=== PATIENT | male | born 1960 | race Caucasian/White ===

== ENCOUNTER 2021-08-12 12:08 | Inpatient (IN) ==
[2021-08-12] MEDS ORDERED: NON-FORMULARY MEDICATION 1 EACH EACH (Cefazolin 2,000 MG/120 ML Bag) IVPB SCH (15:45)
[2021-08-12] MEDS ORDERED: *HR* Dextrose 50 % in Water (Syg) 50 ML SYRINGE IVP PRN (15:49)
[2021-08-12] MEDS ORDERED: Dextrose 4 GM Chewable Tablets PO PRN ×2 (15:49)
[2021-08-12] MEDS ORDERED: D5% in Water 1,000 ML IVC PRN (15:49)
[2021-08-12] MEDS: Insulin LISPRO 300 UNITS/3 ML VIAL SUBQ SCH ×2 (18:18→20:48)
[2021-08-12] MEDS: metroNIDAZOLE 500 MG TABLET PO SCH (20:31)
[2021-08-13] MEDS: ceFAZolin 2,000 MG in 0.9 % Sodium Chloride 100 ML IVPB SCH ×3 (00:29→17:11)
[2021-08-13] MEDS: *HR* Enoxaparin 40 MG/0.4 ML SYRINGE SQ SCH (05:48)
[2021-08-13 06:56] LABS: Basophils % 0.4 %; Eosinophils # 0.2 K/mcL (0.0-0.6); Eosinophils % 2.5 %; Hematocrit 44.6 % (37.5-50.1); Hemoglobin 14.8 g/dL (12.9-16.9); Immature Granulocytes % 0.7 % (0-4); Lymphocytes # 2.5 K/mcL (0.6-4.6); Lymphocytes % 29.5 %; Mean Corpuscular HGB Conc 33.2 g/dL (31.6-35.5); Mean Corpuscular Hemoglobin 29.4 pg (28.0-33.3); Mean Corpuscular Volume 88.7 fL (83.0-100.0); Mean Platelet Volume 9.2 fL (9.4-12.4); Monocytes # 0.9 K/mcL (0.0-1.3); Monocytes % 10.5 %; Neutrophils # 4.8 K/mcL (1.6-8.9); Platelet Count 194 K/mcL (140-400); Red Blood Count 5.03 M/mcL (4.19-5.50); Red Cell Distribution Width 13.6 % (11.5-14.5); Segmented Neutrophils % 56.4 %; White Blood Count 8.4 K/mcL (4.3-11.1)
[2021-08-13 07:15] LABS: BUN/Creatinine Ratio 35 (6-26); Blood Urea Nitrogen 23 mg/dL (6-20); Carbon Dioxide 28 mEq/L (23-29); Chloride 104 mEq/L (98-107); Glucose 200 mg/dL (70-105); Osmolality,Calculated 295 (280-300); Potassium 4.3 mEq/L (3.5-5.1); Sodium 138 mEq/L (136-145); eGFR For African Americans > 60 (> 60); eGFR For Non-African Americans > 60 (> 60)
[2021-08-13] MEDS: Insulin LISPRO 300 UNITS/3 ML VIAL SUBQ SCH ×4 (08:06→20:17)
[2021-08-13] MEDS: metroNIDAZOLE 500 MG TABLET PO SCH ×3 (08:07→20:17)
[2021-08-13] MEDS: GlipiZIDE 5 MG TABLET PO SCH (08:43)
[2021-08-14] MEDS: ceFAZolin 2,000 MG in 0.9 % Sodium Chloride 100 ML IVPB SCH ×3 (00:24→17:04)
[2021-08-14] MEDS: *HR* Enoxaparin 40 MG/0.4 ML SYRINGE SQ SCH (05:59)
[2021-08-14] MEDS: Insulin LISPRO 300 UNITS/3 ML VIAL SUBQ SCH ×4 (08:28→19:55)
[2021-08-14] MEDS: GlipiZIDE 5 MG TABLET PO SCH (08:28)
[2021-08-14] MEDS: metroNIDAZOLE 500 MG TABLET PO SCH ×3 (08:28→19:55)
[2021-08-15] MEDS: ceFAZolin 2,000 MG in 0.9 % Sodium Chloride 100 ML IVPB SCH ×3 (01:00→16:57)
[2021-08-15] MEDS: *HR* Enoxaparin 40 MG/0.4 ML SYRINGE SQ SCH (06:13)
[2021-08-15] MEDS: GlipiZIDE 5 MG TABLET PO SCH (08:15)
[2021-08-15] MEDS: Insulin LISPRO 300 UNITS/3 ML VIAL SUBQ SCH ×4 (08:16→21:59)
[2021-08-15] MEDS: metroNIDAZOLE 500 MG TABLET PO SCH ×3 (08:16→21:59)
[2021-08-15] MEDS: Insulin DETEMIR 100 UNIT/ML X5UNITS SUBQ SCH (21:59)
[2021-08-16] MEDS: ceFAZolin 2,000 MG in 0.9 % Sodium Chloride 100 ML IVPB SCH ×3 (01:12→15:59)
[2021-08-16] MEDS: *HR* Enoxaparin 40 MG/0.4 ML SYRINGE SQ SCH (06:05)
[2021-08-16] MEDS: GlipiZIDE 5 MG TABLET PO SCH (08:46)
[2021-08-16] MEDS: Aspirin Enteric Coated 81 MG Tablet PO SCH (08:46)
[2021-08-16] MEDS: metroNIDAZOLE 500 MG TABLET PO SCH ×3 (08:46→20:58)
[2021-08-16] MEDS: Insulin LISPRO 300 UNITS/3 ML VIAL SUBQ SCH ×4 (08:48→20:58)
[2021-08-16] MEDS: Insulin DETEMIR 100 UNIT/ML X5UNITS SUBQ SCH (20:58)
[2021-08-17] MEDS: ceFAZolin 2,000 MG in 0.9 % Sodium Chloride 100 ML IVPB SCH ×4 (00:18→23:49)
[2021-08-17] MEDS: *HR* Enoxaparin 40 MG/0.4 ML SYRINGE SQ SCH (05:16)
[2021-08-17] MEDS: GlipiZIDE 5 MG TABLET PO SCH (08:42)
[2021-08-17] MEDS: metroNIDAZOLE 500 MG TABLET PO SCH ×3 (08:42→21:19)
[2021-08-17] MEDS: Insulin LISPRO 300 UNITS/3 ML VIAL SUBQ SCH ×4 (08:42→21:19)
[2021-08-17] MEDS: Aspirin Enteric Coated 81 MG Tablet PO SCH (08:42)
[2021-08-17] MEDS: Insulin DETEMIR 100 UNIT/ML X5UNITS SUBQ SCH (21:19)
[2021-08-18] MEDS: *HR* Enoxaparin 40 MG/0.4 ML SYRINGE SQ SCH (06:27)
[2021-08-18] MEDS: metroNIDAZOLE 500 MG TABLET PO SCH ×3 (08:42→20:09)
[2021-08-18] MEDS: Insulin LISPRO 300 UNITS/3 ML VIAL SUBQ SCH ×4 (08:42→20:07)
[2021-08-18] MEDS: GlipiZIDE 5 MG TABLET PO SCH (08:42)
[2021-08-18] MEDS: Aspirin Enteric Coated 81 MG Tablet PO SCH (08:42)
[2021-08-18] MEDS: ceFAZolin 2,000 MG in 0.9 % Sodium Chloride 100 ML IVPB SCH ×3 (08:46→23:36)
[2021-08-18] MEDS: Insulin DETEMIR 100 UNIT/ML X5UNITS SUBQ SCH (20:06)
[2021-08-18] MEDS: Melatonin 3 MG TABLET PO PRN (20:09)
[2021-08-19] MEDS: *HR* Enoxaparin 40 MG/0.4 ML SYRINGE SQ SCH (05:52)
[2021-08-19 06:00] LABS: Basophils % 0.4 %; Eosinophils # 0.3 K/mcL (0.0-0.6); Eosinophils % 3.5 %; Hematocrit 41.6 % (37.5-50.1); Hemoglobin 13.7 g/dL (12.9-16.9); Immature Granulocytes % 0.3 % (0-4); Lymphocytes # 2.3 K/mcL (0.6-4.6); Mean Corpuscular HGB Conc 32.9 g/dL (31.6-35.5); Mean Corpuscular Volume 87.9 fL (83.0-100.0); Mean Platelet Volume 10.1 fL (9.4-12.4); Monocytes # 0.7 K/mcL (0.0-1.3); Monocytes % 10.1 %; Neutrophils # 3.8 K/mcL (1.6-8.9); Platelet Count 127 K/mcL (140-400); Red Blood Count 4.73 M/mcL (4.19-5.50); Red Cell Distribution Width 13.6 % (11.5-14.5); Segmented Neutrophils % 53.7 %; White Blood Count 7.2 K/mcL (4.3-11.1)
[2021-08-19] MEDS: ceFAZolin 2,000 MG in 0.9 % Sodium Chloride 100 ML IVPB SCH ×3 (08:41→23:49)
[2021-08-19] MEDS: metroNIDAZOLE 500 MG TABLET PO SCH ×3 (08:42→21:04)
[2021-08-19] MEDS: GlipiZIDE 5 MG TABLET PO SCH (08:42)
[2021-08-19] MEDS: Insulin DETEMIR 100 UNIT/ML X5UNITS SUBQ SCH ×2 (08:42→21:04)
[2021-08-19] MEDS: Aspirin Enteric Coated 81 MG Tablet PO SCH (08:42)
[2021-08-19] MEDS: Insulin LISPRO 300 UNITS/3 ML VIAL SUBQ SCH ×4 (08:48→21:05)
[2021-08-19 08:59] LABS: BUN/Creatinine Ratio 27 (6-26); Blood Urea Nitrogen 15 mg/dL (6-20); Calcium 8.8 mg/dL (8.6-10.3); Carbon Dioxide 28 mEq/L (23-29); Chloride 105 mEq/L (98-107); Glucose 186 mg/dL (70-105); Osmolality,Calculated 292 (280-300); Potassium 4.3 mEq/L (3.5-5.1); Sodium 138 mEq/L (136-145); eGFR For African Americans > 60 (> 60); eGFR For Non-African Americans > 60 (> 60)
[2021-08-19 10:20] LABS: C-Reactive Protein < 5 mg/L (Less than 10)
[2021-08-20] MEDS: *HR* Enoxaparin 40 MG/0.4 ML SYRINGE SQ SCH (06:30)
[2021-08-20] MEDS: metroNIDAZOLE 500 MG TABLET PO SCH ×3 (07:59→20:53)
[2021-08-20] MEDS: Aspirin Enteric Coated 81 MG Tablet PO SCH (07:59)
[2021-08-20] MEDS: GlipiZIDE 5 MG TABLET PO SCH (07:59)
[2021-08-20] MEDS: Insulin LISPRO 300 UNITS/3 ML VIAL SUBQ SCH ×4 (08:00→20:53)
[2021-08-20] MEDS: Insulin DETEMIR 100 UNIT/ML X5UNITS SUBQ SCH ×2 (08:34→20:53)
[2021-08-20] MEDS: ceFAZolin 2,000 MG in 0.9 % Sodium Chloride 100 ML IVPB SCH ×2 (08:35→17:06)
[2021-08-20] MEDS: Melatonin 3 MG TABLET PO PRN (20:53)
[2021-08-21] MEDS: ceFAZolin 2,000 MG in 0.9 % Sodium Chloride 100 ML IVPB SCH ×3 (01:30→16:26)
[2021-08-21] MEDS: *HR* Enoxaparin 40 MG/0.4 ML SYRINGE SQ SCH (04:04)
[2021-08-21] MEDS: Insulin LISPRO 300 UNITS/3 ML VIAL SUBQ SCH ×4 (08:17→22:45)
[2021-08-21] MEDS: Aspirin Enteric Coated 81 MG Tablet PO SCH (13:17)
[2021-08-21] MEDS: GlipiZIDE 5 MG TABLET PO SCH (13:17)
[2021-08-21] MEDS: metroNIDAZOLE 500 MG TABLET PO SCH ×3 (13:17→22:40)
[2021-08-21] MEDS: Insulin DETEMIR 100 UNIT/ML X5UNITS SUBQ SCH ×2 (13:18→22:39)
[2021-08-21] MEDS: Melatonin 3 MG TABLET PO PRN (22:40)
[2021-08-22] MEDS: ceFAZolin 2,000 MG in 0.9 % Sodium Chloride 100 ML IVPB SCH ×3 (01:17→15:40)
[2021-08-22] MEDS: *HR* Enoxaparin 40 MG/0.4 ML SYRINGE SQ SCH (07:03)
[2021-08-22] MEDS: Insulin LISPRO 300 UNITS/3 ML VIAL SUBQ SCH ×4 (08:26→20:47)
[2021-08-22] MEDS: Aspirin Enteric Coated 81 MG Tablet PO SCH (08:27)
[2021-08-22] MEDS: metroNIDAZOLE 500 MG TABLET PO SCH ×3 (08:27→20:47)
[2021-08-22] MEDS: GlipiZIDE 5 MG TABLET PO SCH (08:27)
[2021-08-22] MEDS: Insulin DETEMIR 100 UNIT/ML X5UNITS SUBQ SCH ×2 (08:59→20:47)
[2021-08-22] MEDS: Melatonin 3 MG TABLET PO PRN (20:46)
[2021-08-23] MEDS: ceFAZolin 2,000 MG in 0.9 % Sodium Chloride 100 ML IVPB SCH ×4 (00:18→23:59)
[2021-08-23] MEDS: *HR* Enoxaparin 40 MG/0.4 ML SYRINGE SQ SCH (05:33)
[2021-08-23 07:53] LABS: Basophils % 0.4 %; Eosinophils # 0.2 K/mcL (0.0-0.6); Hemoglobin 13.7 g/dL (12.9-16.9); Immature Granulocytes % 0.3 % (0-4); Lymphocytes # 2.5 K/mcL (0.6-4.6); Mean Corpuscular HGB Conc 33.4 g/dL (31.6-35.5); Mean Corpuscular Hemoglobin 29.5 pg (28.0-33.3); Mean Corpuscular Volume 88.4 fL (83.0-100.0); Monocytes # 0.7 K/mcL (0.0-1.3); Monocytes % 9.9 %; Neutrophils # 4.1 K/mcL (1.6-8.9); Platelet Count 126 K/mcL (140-400); Red Blood Count 4.64 M/mcL (4.19-5.50); Red Cell Distribution Width 13.8 % (11.5-14.5); Segmented Neutrophils % 54.4 %; White Blood Count 7.5 K/mcL (4.3-11.1)
[2021-08-23] MEDS: Insulin LISPRO 300 UNITS/3 ML VIAL SUBQ SCH ×4 (08:09→20:43)
[2021-08-23] MEDS: GlipiZIDE 5 MG TABLET PO SCH (08:10)
[2021-08-23] MEDS: metroNIDAZOLE 500 MG TABLET PO SCH ×3 (08:11→20:41)
[2021-08-23] MEDS: Aspirin Enteric Coated 81 MG Tablet PO SCH (08:11)
[2021-08-23 08:14] LABS: BUN/Creatinine Ratio 29 (6-26); Blood Urea Nitrogen 17 mg/dL (6-20); Calcium 8.8 mg/dL (8.6-10.3); Carbon Dioxide 29 mEq/L (23-29); Chloride 102 mEq/L (98-107); Glucose 203 mg/dL (70-105); Osmolality,Calculated 293 (280-300); Potassium 3.9 mEq/L (3.5-5.1); Sodium 138 mEq/L (136-145); eGFR For African Americans > 60 (> 60); eGFR For Non-African Americans > 60 (> 60)
[2021-08-23] MEDS: Insulin DETEMIR 100 UNIT/ML X5UNITS SUBQ SCH ×2 (08:44→20:42)
[2021-08-23] MEDS: Melatonin 3 MG TABLET PO PRN (20:42)
[2021-08-24] MEDS: *HR* Enoxaparin 40 MG/0.4 ML SYRINGE SQ SCH (05:17)
[2021-08-24] MEDS: Insulin LISPRO 300 UNITS/3 ML VIAL SUBQ SCH ×4 (07:40→20:05)
[2021-08-24] MEDS: GlipiZIDE 5 MG TABLET PO SCH (09:48)
[2021-08-24] MEDS: Insulin DETEMIR 100 UNIT/ML X5UNITS SUBQ SCH ×2 (09:48→20:04)
[2021-08-24] MEDS: metroNIDAZOLE 500 MG TABLET PO SCH ×3 (09:48→20:04)
[2021-08-24] MEDS: Aspirin Enteric Coated 81 MG Tablet PO SCH (09:48)
[2021-08-24] MEDS: ceFAZolin 2,000 MG in 0.9 % Sodium Chloride 100 ML IVPB SCH ×3 (10:07→23:46)
[2021-08-24] MEDS: Melatonin 3 MG TABLET PO PRN (20:04)
[2021-08-25] MEDS: *HR* Enoxaparin 40 MG/0.4 ML SYRINGE SQ SCH (06:53)
[2021-08-25] MEDS: metroNIDAZOLE 500 MG TABLET PO SCH ×3 (07:26→21:04)
[2021-08-25] MEDS: GlipiZIDE 5 MG TABLET PO SCH (07:26)
[2021-08-25] MEDS: Aspirin Enteric Coated 81 MG Tablet PO SCH (07:26)
[2021-08-25] MEDS: ceFAZolin 2,000 MG in 0.9 % Sodium Chloride 100 ML IVPB SCH ×2 (07:27→17:31)
[2021-08-25] MEDS: Insulin LISPRO 300 UNITS/3 ML VIAL SUBQ SCH ×4 (07:27→21:04)
[2021-08-25] MEDS: Insulin DETEMIR 100 UNIT/ML X5UNITS SUBQ SCH ×2 (08:12→21:04)
[2021-08-25] MEDS: Melatonin 3 MG TABLET PO PRN (21:04)
[2021-08-26] MEDS: ceFAZolin 2,000 MG in 0.9 % Sodium Chloride 100 ML IVPB SCH ×3 (00:03→16:51)
[2021-08-26] MEDS: *HR* Enoxaparin 40 MG/0.4 ML SYRINGE SQ SCH (06:34)
[2021-08-26] MEDS: Insulin LISPRO 300 UNITS/3 ML VIAL SUBQ SCH ×4 (07:30→20:45)
[2021-08-26] MEDS: metroNIDAZOLE 500 MG TABLET PO SCH ×2 (09:58→17:22)
[2021-08-26] MEDS: GlipiZIDE 5 MG TABLET PO SCH (09:58)
[2021-08-26] MEDS: Aspirin Enteric Coated 81 MG Tablet PO SCH (09:58)
[2021-08-26] MEDS: Insulin DETEMIR 100 UNIT/ML X5UNITS SUBQ SCH ×2 (10:02→20:56)
[2021-08-26] MEDS: Melatonin 3 MG TABLET PO PRN (20:56)
[2021-08-27] MEDS: ceFAZolin 2,000 MG in 0.9 % Sodium Chloride 100 ML IVPB SCH ×3 (00:29→16:22)
[2021-08-27] MEDS: *HR* Enoxaparin 40 MG/0.4 ML SYRINGE SQ SCH (05:23)
[2021-08-27] MEDS: GlipiZIDE 5 MG TABLET PO SCH (07:44)
[2021-08-27] MEDS: Insulin LISPRO 300 UNITS/3 ML VIAL SUBQ SCH ×4 (07:44→20:46)
[2021-08-27] MEDS: Aspirin Enteric Coated 81 MG Tablet PO SCH (07:44)
[2021-08-27] MEDS: Insulin DETEMIR 100 UNIT/ML X5UNITS SUBQ SCH ×2 (08:09→20:46)
[2021-08-28] MEDS: ceFAZolin 2,000 MG in 0.9 % Sodium Chloride 100 ML IVPB SCH ×3 (00:12→16:54)
[2021-08-28] MEDS: *HR* Enoxaparin 40 MG/0.4 ML SYRINGE SQ SCH (06:41)
[2021-08-28] MEDS: Aspirin Enteric Coated 81 MG Tablet PO SCH (07:55)
[2021-08-28] MEDS: GlipiZIDE 5 MG TABLET PO SCH (07:56)
[2021-08-28] MEDS: Insulin LISPRO 300 UNITS/3 ML VIAL SUBQ SCH ×4 (07:56→21:44)
[2021-08-28] MEDS: Insulin DETEMIR 100 UNIT/ML X5UNITS SUBQ SCH ×2 (08:57→21:43)
[2021-08-29] MEDS: ceFAZolin 2,000 MG in 0.9 % Sodium Chloride 100 ML IVPB SCH ×3 (00:21→17:25)
[2021-08-29] MEDS: *HR* Enoxaparin 40 MG/0.4 ML SYRINGE SQ SCH (06:24)
[2021-08-29] MEDS: GlipiZIDE 5 MG TABLET PO SCH (08:41)
[2021-08-29] MEDS: Insulin DETEMIR 100 UNIT/ML X5UNITS SUBQ SCH ×2 (08:41→22:03)
[2021-08-29] MEDS: Aspirin Enteric Coated 81 MG Tablet PO SCH (08:41)
[2021-08-29] MEDS: Insulin LISPRO 300 UNITS/3 ML VIAL SUBQ SCH ×4 (08:42→22:03)
[2021-08-30] MEDS: ceFAZolin 2,000 MG in 0.9 % Sodium Chloride 100 ML IVPB SCH ×3 (00:45→16:28)
[2021-08-30] MEDS: *HR* Enoxaparin 40 MG/0.4 ML SYRINGE SQ SCH (06:10)
[2021-08-30] MEDS: Insulin LISPRO 300 UNITS/3 ML VIAL SUBQ SCH ×4 (09:32→20:26)
[2021-08-30] MEDS: Insulin DETEMIR 100 UNIT/ML X5UNITS SUBQ SCH ×2 (09:33→20:26)
[2021-08-30] MEDS: GlipiZIDE 5 MG TABLET PO SCH (09:45)
[2021-08-30] MEDS: Aspirin Enteric Coated 81 MG Tablet PO SCH (09:46)
[2021-08-31] MEDS: ceFAZolin 2,000 MG in 0.9 % Sodium Chloride 100 ML IVPB SCH ×4 (00:49→22:38)
[2021-08-31] MEDS: *HR* Enoxaparin 40 MG/0.4 ML SYRINGE SQ SCH (05:17)
[2021-08-31] MEDS: Insulin DETEMIR 100 UNIT/ML X5UNITS SUBQ SCH ×2 (08:52→22:38)
[2021-08-31] MEDS: Aspirin Enteric Coated 81 MG Tablet PO SCH (08:52)
[2021-08-31] MEDS: GlipiZIDE 5 MG TABLET PO SCH (08:52)
[2021-08-31] MEDS: Insulin LISPRO 300 UNITS/3 ML VIAL SUBQ SCH ×4 (08:52→19:47)
[2021-08-31] MEDS: polyethylene glycoL 3350 17 GM POWD.PACK PO PRN (12:45)
[2021-08-31] MEDS: Lactulose Oral Soln 20 GM/30 ML UDC PO PRN (14:25)
[2021-09-01] MEDS: ceFAZolin 2,000 MG in 0.9 % Sodium Chloride 100 ML IVPB SCH ×2 (04:01→12:46)
[2021-09-01] MEDS: *HR* Enoxaparin 40 MG/0.4 ML SYRINGE SQ SCH (05:58)
[2021-09-01] MEDS: Insulin LISPRO 300 UNITS/3 ML VIAL SUBQ SCH ×4 (08:34→19:25)
[2021-09-01] MEDS: Lactulose Oral Soln 20 GM/30 ML UDC PO PRN (08:48)
[2021-09-01] MEDS: Aspirin Enteric Coated 81 MG Tablet PO SCH (08:48)
[2021-09-01] MEDS: GlipiZIDE 5 MG TABLET PO SCH (08:48)
[2021-09-01] MEDS: Insulin DETEMIR 100 UNIT/ML X5UNITS SUBQ SCH ×2 (08:56→20:50)
[2021-09-01] MEDS: Melatonin 3 MG TABLET PO PRN (20:50)
[2021-09-02] MEDS: ceFAZolin 2,000 MG in 0.9 % Sodium Chloride 100 ML IVPB SCH ×4 (00:46→23:54)
[2021-09-02] MEDS: *HR* Enoxaparin 40 MG/0.4 ML SYRINGE SQ SCH (06:36)
[2021-09-02 07:09] LABS: Basophils % 0.3 %; Eosinophils # 0.4 K/mcL (0.0-0.6); Eosinophils % 5.9 %; Hematocrit 40.4 % (37.5-50.1); Hemoglobin 13.7 g/dL (12.9-16.9); Immature Granulocytes % 0.2 % (0-4); Lymphocytes # 2.4 K/mcL (0.6-4.6); Lymphocytes % 38.3 %; Mean Corpuscular HGB Conc 33.9 g/dL (31.6-35.5); Mean Corpuscular Hemoglobin 29.8 pg (28.0-33.3); Mean Corpuscular Volume 87.8 fL (83.0-100.0); Mean Platelet Volume 9.6 fL (9.4-12.4); Monocytes # 0.8 K/mcL (0.0-1.3); Monocytes % 12.9 %; Neutrophils # 2.6 K/mcL (1.6-8.9); Platelet Count 145 K/mcL (140-400); Red Cell Distribution Width 13.5 % (11.5-14.5); Segmented Neutrophils % 42.4 %; White Blood Count 6.1 K/mcL (4.3-11.1)
[2021-09-02] MEDS: Insulin LISPRO 300 UNITS/3 ML VIAL SUBQ SCH ×4 (07:42→20:37)
[2021-09-02 08:10] LABS: BUN/Creatinine Ratio 25 (6-26); Blood Urea Nitrogen 13 mg/dL (6-20); Calcium 8.7 mg/dL (8.6-10.3); Carbon Dioxide 30 mEq/L (23-29); Chloride 105 mEq/L (98-107); Glucose 134 mg/dL (70-105); Osmolality,Calculated 294 (280-300); Potassium 3.9 mEq/L (3.5-5.1); Sodium 141 mEq/L (136-145); eGFR For African Americans > 60 (> 60); eGFR For Non-African Americans > 60 (> 60)
[2021-09-02] MEDS: Aspirin Enteric Coated 81 MG Tablet PO SCH (08:46)
[2021-09-02] MEDS: GlipiZIDE 5 MG TABLET PO SCH (08:46)
[2021-09-02] MEDS: Insulin DETEMIR 100 UNIT/ML X5UNITS SUBQ SCH ×2 (08:47→20:36)
[2021-09-02 09:10] LABS: C-Reactive Protein < 5 mg/L (Less than 10)
[2021-09-03] MEDS: *HR* Enoxaparin 40 MG/0.4 ML SYRINGE SQ SCH (05:57)
[2021-09-03] MEDS: Insulin LISPRO 300 UNITS/3 ML VIAL SUBQ SCH ×4 (07:48→19:58)
[2021-09-03] MEDS: ceFAZolin 2,000 MG in 0.9 % Sodium Chloride 100 ML IVPB SCH ×3 (08:23→23:31)
[2021-09-03] MEDS: GlipiZIDE 5 MG TABLET PO SCH (08:24)
[2021-09-03] MEDS: Aspirin Enteric Coated 81 MG Tablet PO SCH (08:24)
[2021-09-03] MEDS: Insulin DETEMIR 100 UNIT/ML X5UNITS SUBQ SCH ×2 (12:04→20:32)
[2021-09-03] MEDS: Melatonin 3 MG TABLET PO PRN (20:32)
[2021-09-03] MEDS: Sennosides 8.6 MG TABLET PO PRN (20:32)
[2021-09-04] MEDS: *HR* Enoxaparin 40 MG/0.4 ML SYRINGE SQ SCH (05:51)
[2021-09-04] MEDS: Insulin LISPRO 300 UNITS/3 ML VIAL SUBQ SCH ×4 (07:17→19:41)
[2021-09-04] MEDS: ceFAZolin 2,000 MG in 0.9 % Sodium Chloride 100 ML IVPB SCH ×3 (07:25→23:34)
[2021-09-04] MEDS: Aspirin Enteric Coated 81 MG Tablet PO SCH (07:25)
[2021-09-04] MEDS: GlipiZIDE 5 MG TABLET PO SCH (07:25)
[2021-09-04] MEDS: Insulin DETEMIR 100 UNIT/ML X5UNITS SUBQ SCH ×2 (09:12→19:41)
[2021-09-05] MEDS: *HR* Enoxaparin 40 MG/0.4 ML SYRINGE SQ SCH (05:35)
[2021-09-05] MEDS: ceFAZolin 2,000 MG in 0.9 % Sodium Chloride 100 ML IVPB SCH ×3 (08:09→23:42)
[2021-09-05] MEDS: Aspirin Enteric Coated 81 MG Tablet PO SCH (08:09)
[2021-09-05] MEDS: GlipiZIDE 5 MG TABLET PO SCH (08:09)
[2021-09-05] MEDS: Insulin DETEMIR 100 UNIT/ML X5UNITS SUBQ SCH ×2 (08:35→19:51)
[2021-09-05] MEDS: Insulin LISPRO 300 UNITS/3 ML VIAL SUBQ SCH ×4 (13:39→19:52)
[2021-09-05] MEDS: Melatonin 3 MG TABLET PO PRN (19:51)
[2021-09-06] MEDS: *HR* Enoxaparin 40 MG/0.4 ML SYRINGE SQ SCH (05:15)
[2021-09-06] MEDS: Insulin LISPRO 300 UNITS/3 ML VIAL SUBQ SCH ×4 (07:20→20:48)
[2021-09-06] MEDS: ceFAZolin 2,000 MG in 0.9 % Sodium Chloride 100 ML IVPB SCH ×3 (09:17→23:59)
[2021-09-06] MEDS: GlipiZIDE 5 MG TABLET PO SCH (09:17)
[2021-09-06] MEDS: Aspirin Enteric Coated 81 MG Tablet PO SCH (09:17)
[2021-09-06] MEDS: Insulin DETEMIR 100 UNIT/ML X5UNITS SUBQ SCH ×2 (09:17→20:49)
[2021-09-06] MEDS: Melatonin 3 MG TABLET PO PRN (20:45)
[2021-09-07] MEDS: *HR* Enoxaparin 40 MG/0.4 ML SYRINGE SQ SCH (04:49)
[2021-09-07] MEDS: Insulin LISPRO 300 UNITS/3 ML VIAL SUBQ SCH ×4 (07:23→21:05)
[2021-09-07] MEDS: ceFAZolin 2,000 MG in 0.9 % Sodium Chloride 100 ML IVPB SCH ×3 (08:27→23:18)
[2021-09-07] MEDS: Insulin DETEMIR 100 UNIT/ML X5UNITS SUBQ SCH ×2 (08:27→21:00)
[2021-09-07] MEDS: Aspirin Enteric Coated 81 MG Tablet PO SCH (08:27)
[2021-09-07] MEDS: GlipiZIDE 5 MG TABLET PO SCH (08:27)
[2021-09-08] MEDS: *HR* Enoxaparin 40 MG/0.4 ML SYRINGE SQ SCH (05:40)
[2021-09-08] MEDS: Insulin LISPRO 300 UNITS/3 ML VIAL SUBQ SCH ×4 (07:27→20:38)
[2021-09-08] MEDS: Aspirin Enteric Coated 81 MG Tablet PO SCH (08:26)
[2021-09-08] MEDS: GlipiZIDE 5 MG TABLET PO SCH (08:26)
[2021-09-08] MEDS: ceFAZolin 2,000 MG in 0.9 % Sodium Chloride 100 ML IVPB SCH ×3 (08:26→23:37)
[2021-09-08] MEDS: Insulin DETEMIR 100 UNIT/ML X5UNITS SUBQ SCH ×2 (08:27→20:35)
[2021-09-09] MEDS: *HR* Enoxaparin 40 MG/0.4 ML SYRINGE SQ SCH (05:25)
[2021-09-09 07:35] LABS: Basophils % 0.3 %; Eosinophils # 0.2 K/mcL (0.0-0.6); Eosinophils % 3.8 %; Hematocrit 41.2 % (37.5-50.1); Hemoglobin 13.7 g/dL (12.9-16.9); Immature Granulocytes % 0.3 % (0-4); Lymphocytes # 2.2 K/mcL (0.6-4.6); Lymphocytes % 34.9 %; Mean Corpuscular HGB Conc 33.3 g/dL (31.6-35.5); Mean Corpuscular Hemoglobin 29.1 pg (28.0-33.3); Mean Corpuscular Volume 87.5 fL (83.0-100.0); Mean Platelet Volume 9.6 fL (9.4-12.4); Monocytes # 0.7 K/mcL (0.0-1.3); Monocytes % 11.6 %; Neutrophils # 3.1 K/mcL (1.6-8.9); Platelet Count 131 K/mcL (140-400); Red Blood Count 4.71 M/mcL (4.19-5.50); Red Cell Distribution Width 13.3 % (11.5-14.5); Segmented Neutrophils % 49.1 %; White Blood Count 6.4 K/mcL (4.3-11.1)
[2021-09-09 07:47] LABS: BUN/Creatinine Ratio 26 (6-26); Blood Urea Nitrogen 15 mg/dL (6-20); Carbon Dioxide 29 mEq/L (23-29); Chloride 105 mEq/L (98-107); Glucose 137 mg/dL (70-105); Osmolality,Calculated 293 (280-300); Potassium 3.9 mEq/L (3.5-5.1); Sodium 140 mEq/L (136-145); eGFR For African Americans > 60 (> 60); eGFR For Non-African Americans > 60 (> 60)
[2021-09-09 09:04] LABS: C-Reactive Protein < 5 mg/L (Less than 10)
[2021-09-09] MEDS: ceFAZolin 2,000 MG in 0.9 % Sodium Chloride 100 ML IVPB SCH ×3 (10:22→22:56)
[2021-09-09] MEDS: GlipiZIDE 5 MG TABLET PO SCH (10:23)
[2021-09-09] MEDS: Insulin LISPRO 300 UNITS/3 ML VIAL SUBQ SCH ×4 (10:23→22:07)
[2021-09-09] MEDS: Insulin DETEMIR 100 UNIT/ML X5UNITS SUBQ SCH ×2 (10:23→22:56)
[2021-09-09] MEDS: Aspirin Enteric Coated 81 MG Tablet PO SCH (10:23)
[2021-09-09] MEDS: Sennosides 8.6 MG TABLET PO PRN (10:28)
[2021-09-09] MEDS: polyethylene glycoL 3350 17 GM POWD.PACK PO PRN (10:28)
[2021-09-09] MEDS: Melatonin 3 MG TABLET PO PRN (22:56)
[2021-09-10] MEDS: *HR* Enoxaparin 40 MG/0.4 ML SYRINGE SQ SCH (05:54)
[2021-09-10] MEDS: Insulin LISPRO 300 UNITS/3 ML VIAL SUBQ SCH ×4 (07:37→21:00)
[2021-09-10] MEDS: Insulin DETEMIR 100 UNIT/ML X5UNITS SUBQ SCH ×2 (08:47→21:00)
[2021-09-10] MEDS: Aspirin Enteric Coated 81 MG Tablet PO SCH (08:47)
[2021-09-10] MEDS: GlipiZIDE 5 MG TABLET PO SCH (08:47)
[2021-09-10] MEDS: ceFAZolin 2,000 MG in 0.9 % Sodium Chloride 100 ML IVPB SCH ×2 (08:48→16:56)
[2021-09-10] MEDS: Melatonin 3 MG TABLET PO PRN (21:01)
[2021-09-11] MEDS: ceFAZolin 2,000 MG in 0.9 % Sodium Chloride 100 ML IVPB SCH ×4 (00:15→22:21)
[2021-09-11] MEDS: *HR* Enoxaparin 40 MG/0.4 ML SYRINGE SQ SCH (06:17)
[2021-09-11] MEDS: Insulin LISPRO 300 UNITS/3 ML VIAL SUBQ SCH ×4 (07:42→19:56)
[2021-09-11] MEDS: Insulin DETEMIR 100 UNIT/ML X5UNITS SUBQ SCH ×2 (08:29→22:20)
[2021-09-11] MEDS: Aspirin Enteric Coated 81 MG Tablet PO SCH (08:29)
[2021-09-11] MEDS: GlipiZIDE 5 MG TABLET PO SCH (08:29)
[2021-09-11] MEDS: Melatonin 3 MG TABLET PO PRN (22:21)
[2021-09-12] MEDS: *HR* Enoxaparin 40 MG/0.4 ML SYRINGE SQ SCH (06:28)
[2021-09-12] MEDS: Insulin LISPRO 300 UNITS/3 ML VIAL SUBQ SCH ×4 (08:41→20:34)
[2021-09-12] MEDS: GlipiZIDE 5 MG TABLET PO SCH (08:46)
[2021-09-12] MEDS: Aspirin Enteric Coated 81 MG Tablet PO SCH (08:46)
[2021-09-12] MEDS: Sennosides 8.6 MG TABLET PO PRN (08:46)
[2021-09-12] MEDS: ceFAZolin 2,000 MG in 0.9 % Sodium Chloride 100 ML IVPB SCH ×3 (08:47→23:39)
[2021-09-12] MEDS: Insulin DETEMIR 100 UNIT/ML X5UNITS SUBQ SCH ×2 (08:49→21:53)
[2021-09-12] MEDS: Melatonin 3 MG TABLET PO PRN (21:52)
[2021-09-13] MEDS ORDERED: traZODone 50 MG TABLET PO STA (00:55)
[2021-09-13] MEDS: *HR* Enoxaparin 40 MG/0.4 ML SYRINGE SQ SCH (07:55)
[2021-09-13] MEDS: Insulin LISPRO 300 UNITS/3 ML VIAL SUBQ SCH ×4 (07:55→20:30)
[2021-09-13] MEDS: Aspirin Enteric Coated 81 MG Tablet PO SCH (08:51)
[2021-09-13] MEDS: GlipiZIDE 5 MG TABLET PO SCH (08:51)
[2021-09-13] MEDS: Insulin DETEMIR 100 UNIT/ML X5UNITS SUBQ SCH ×2 (08:52→20:30)
[2021-09-13] MEDS: ceFAZolin 2,000 MG in 0.9 % Sodium Chloride 100 ML IVPB SCH ×3 (09:06→23:59)
[2021-09-13] MEDS ORDERED: Dextrose Gel 15 GM/37.5 ML TUBE PO PRN ×2 (15:34)
[2021-09-13] MEDS: Melatonin 3 MG TABLET PO PRN (20:30)
[2021-09-14] MEDS: *HR* Enoxaparin 40 MG/0.4 ML SYRINGE SQ SCH (05:57)
[2021-09-14] MEDS: Insulin LISPRO 300 UNITS/3 ML VIAL SUBQ SCH ×4 (08:42→22:31)
[2021-09-14] MEDS: Sennosides 8.6 MG TABLET PO PRN (09:28)
[2021-09-14] MEDS: Insulin DETEMIR 100 UNIT/ML X5UNITS SUBQ SCH ×2 (09:29→22:31)
[2021-09-14] MEDS: Aspirin Enteric Coated 81 MG Tablet PO SCH (09:29)
[2021-09-14] MEDS: GlipiZIDE 5 MG TABLET PO SCH (09:29)
[2021-09-14] MEDS: ceFAZolin 2,000 MG in 0.9 % Sodium Chloride 100 ML IVPB SCH ×2 (09:29→16:43)
[2021-09-14] MEDS: Melatonin 3 MG TABLET PO PRN (22:31)
[2021-09-15] MEDS: ceFAZolin 2,000 MG in 0.9 % Sodium Chloride 100 ML IVPB SCH ×4 (00:43→23:21)
[2021-09-15] MEDS: *HR* Enoxaparin 40 MG/0.4 ML SYRINGE SQ SCH (06:41)
[2021-09-15] MEDS: Insulin LISPRO 300 UNITS/3 ML VIAL SUBQ SCH ×4 (09:22→20:50)
[2021-09-15] MEDS: GlipiZIDE 5 MG TABLET PO SCH (09:23)
[2021-09-15] MEDS: Insulin DETEMIR 100 UNIT/ML X5UNITS SUBQ SCH ×2 (09:23→21:04)
[2021-09-15] MEDS: Aspirin Enteric Coated 81 MG Tablet PO SCH (09:23)
[2021-09-16] MEDS: *HR* Enoxaparin 40 MG/0.4 ML SYRINGE SQ SCH (06:30)
[2021-09-16 07:42] LABS: Basophils % 0.3 %; Eosinophils # 0.3 K/mcL (0.0-0.6); Eosinophils % 3.9 %; Hematocrit 42.3 % (37.5-50.1); Hemoglobin 14.5 g/dL (12.9-16.9); Immature Granulocytes % 0.3 % (0-4); Lymphocytes # 1.9 K/mcL (0.6-4.6); Lymphocytes % 29.8 %; Mean Corpuscular HGB Conc 34.3 g/dL (31.6-35.5); Mean Corpuscular Hemoglobin 29.8 pg (28.0-33.3); Mean Corpuscular Volume 86.9 fL (83.0-100.0); Mean Platelet Volume 10.1 fL (9.4-12.4); Monocytes # 0.8 K/mcL (0.0-1.3); Monocytes % 12.1 %; Neutrophils # 3.4 K/mcL (1.6-8.9); Platelet Count 126 K/mcL (140-400); Red Blood Count 4.87 M/mcL (4.19-5.50); Red Cell Distribution Width 13.3 % (11.5-14.5); Segmented Neutrophils % 53.6 %; White Blood Count 6.4 K/mcL (4.3-11.1)
[2021-09-16 07:55] LABS: BUN/Creatinine Ratio 31 (6-26); Blood Urea Nitrogen 18 mg/dL (6-20); Calcium 9.1 mg/dL (8.6-10.3); Carbon Dioxide 28 mEq/L (23-29); Chloride 105 mEq/L (98-107); Glucose 160 mg/dL (70-105); Osmolality,Calculated 295 (280-300); Potassium 4.1 mEq/L (3.5-5.1); Sodium 140 mEq/L (136-145); eGFR For African Americans > 60 (> 60); eGFR For Non-African Americans > 60 (> 60)
[2021-09-16] MEDS: ceFAZolin 2,000 MG in 0.9 % Sodium Chloride 100 ML IVPB SCH ×2 (08:52→16:05)
[2021-09-16] MEDS: Aspirin Enteric Coated 81 MG Tablet PO SCH (08:52)
[2021-09-16] MEDS: GlipiZIDE 5 MG TABLET PO SCH (08:52)
[2021-09-16] MEDS: Insulin LISPRO 300 UNITS/3 ML VIAL SUBQ SCH ×4 (08:53→21:18)
[2021-09-16] MEDS: Insulin DETEMIR 100 UNIT/ML X5UNITS SUBQ SCH ×2 (08:53→21:18)
[2021-09-16 12:11] LABS: C-Reactive Protein < 5 mg/L (Less than 10)
[2021-09-16 19:01] VITALS: O2SAT 99
[2021-09-17] MEDS: ceFAZolin 2,000 MG in 0.9 % Sodium Chloride 100 ML IVPB SCH ×4 (00:34→23:28)
[2021-09-17] MEDS: *HR* Enoxaparin 40 MG/0.4 ML SYRINGE SQ SCH (05:50)
[2021-09-17] MEDS: Aspirin Enteric Coated 81 MG Tablet PO SCH (12:01)
[2021-09-17] MEDS: GlipiZIDE 5 MG TABLET PO SCH (12:01)
[2021-09-17] MEDS: Insulin LISPRO 300 UNITS/3 ML VIAL SUBQ SCH ×4 (12:05→20:43)
[2021-09-17] MEDS: Insulin DETEMIR 100 UNIT/ML X5UNITS SUBQ SCH ×2 (13:20→20:45)
[2021-09-17 19:35] VITALS: TEMP 98
[2021-09-17] MEDS: Melatonin 3 MG TABLET PO PRN (20:43)
[2021-09-18] MEDS: *HR* Enoxaparin 40 MG/0.4 ML SYRINGE SQ SCH (06:03)
[2021-09-18] MEDS: ceFAZolin 2,000 MG in 0.9 % Sodium Chloride 100 ML IVPB SCH (06:03)
[2021-09-18 07:53] VITALS: BP 156/83; PULSE 71; RESP 14
[2021-09-18] MEDS: GlipiZIDE 5 MG TABLET PO SCH (08:33)
[2021-09-18] MEDS: Insulin DETEMIR 100 UNIT/ML X5UNITS SUBQ SCH (08:33)
[2021-09-18] MEDS: Aspirin Enteric Coated 81 MG Tablet PO SCH (08:33)
[2021-09-18] MEDS: Insulin LISPRO 300 UNITS/3 ML VIAL SUBQ SCH ×2 (08:34→12:06)
== END 2021-09-18 13:10 | disposition home or self-care (01) | DRG 602 ==
LOC: INPPIK 17:10
PROVIDERS: ADMIT Family Medicine; ATTEND Family Medicine